=== PATIENT | male | born 1990 | race Caucasian/White ===

== ENCOUNTER 2019-09-23 05:09 | Emergency (ER) | payer OTHER, BC ==
[~2019-09-23] VITALS: Ht 187.9 cm; Wt 90.7 kg
[2019-09-23] MEDS ORDERED: KEFLEX500 M1 PO (06:58)
[2019-09-23] MEDS ORDERED: IBU800 MG PO (07:13)
== END 2019-09-23 07:05 | disposition home or self-care (01) ==
LOC: ED 05:09
DX: S50.811A Abrasion of right forearm, initial encounter (principal); S80.211A Abrasion, right knee, initial encounter; S70.311A Abrasion, right thigh, initial encounter; S40.811A Abrasion of right upper arm, initial encounter; M25.511 Pain in right shoulder; V29.9XXA Motorcycle rider (driver) (passenger) injured in unspecified traffic accident, initial encounter; Y93.89 Activity, other specified; Y92.89 Other specified places as the place of occurrence of the external cause; Y99.8 Other external cause status